=== PATIENT | female | born 1960 | race Caucasian/White ===

== ENCOUNTER 2017-03-04 19:59 | Emergency (ER) | payer MEDICAID ==
[~2017-03-04] VITALS: Ht 167.6 cm; Wt 72.7 kg
[2017-03-04 20:00] VITALS: BP 135/78
== END 2017-03-05 00:29 | disposition left against medical advice (07) ==
LOC: ER 20:51
DX: R51 Headache (principal); R10.2 Pelvic and perineal pain; Z53.21 Procedure and treatment not carried out due to patient leaving prior to being seen by health care provider

== ENCOUNTER 2017-03-05 01:20 | Emergency (ER) | payer MEDICAID ==
[~2017-03-05] VITALS: Ht 167.6 cm; Wt 72.7 kg
[2017-03-05 07:00] VITALS: BP 127/63
[2017-03-05] MEDS ORDERED: IBUPROFEN 800MG TABLET PO ONE (07:00)
[2017-03-05 07:43] LABS: BASOPHILS % 0.4 % (0.0-2.0); HEMATOCRIT. 36.3 % (36.0-48.0); HEMOGLOBIN. 12.5 g/dL (12.0-16.0); LYMPHOCYTES % 19.4 % (20.0-50.0); MEAN CORPUSCULAR HEMOGLOBIN 29.5 pg (28.0-32.0); MEAN CORPUSCULAR VOLUME 85.9 fL (81.0-99.0); MEAN PLATELET VOLUME 7.7 fl (7.4-10.4); NEUTROPHILS % 69.2 % (40.0-76.0); PLATELET 222 x1000/uL (130-400); RED BLOOD CELL COUNT 4.23 mill/uL (4.2-5.4); RED CELL DISTRIBUTION WIDTH 12.8 % (11.6-14.6)
[2017-03-05 09:02] LABS: CLARITY URINE CLOUDY (CLEAR); COLOR URINE DARK YELLOW (YELLOW); KETONES URINE TRACE (NEGATIVE); LEUKOCYTE ESTERASE URINE TRACE (NEGATIVE); NITRITE URINE NEGATIVE (NEGATIVE); OCCULT BLOOD URINE NEGATIVE (NEGATIVE); PH URINE 5.5 (4.5-8.0); PROTEIN URINE 1+ (NEGATIVE); SPECIFIC GRAVITY URINE 1.038 (1.005-1.030)
[2017-03-05] MEDS ORDERED: ACETAMINOPHEN 325MG TABLET PO ONE (09:45)
== END 2017-03-05 12:47 | disposition home or self-care (01) ==
LOC: ER 01:20
DX: B37.3 Candidiasis of vulva and vagina (principal); I10 Essential (primary) hypertension; F31.9 Bipolar disorder, unspecified; Z88.6 Allergy status to analgesic agent; Z98.890 Other specified postprocedural states
CPT/HCPCS: 36415; 76830; 76856; 81001; 85025; 99285; Z7610

== ENCOUNTER 2018-03-01 18:08 | Emergency (ER) | payer MEDICAID | END 2018-03-01 19:22 | disposition left against medical advice (07) | LOC: ER 18:08 | DX: Z53.21 Procedure and treatment not carried out due to patient leaving prior to being seen by health care provider (principal) ==

== ENCOUNTER 2019-07-09 00:09 | Emergency (ER) | payer MEDICAID ==
[~2019-07-09] VITALS: Ht 160 cm; Wt 70.0 kg
[2019-07-09] MEDS ORDERED: IBUPROFEN 800MG TABLET PO ONE (01:00)
[2019-07-09] MEDS ORDERED: ACETAMINOPHEN 325MG TABLET PO STA (04:40)
[2019-07-09 07:35] VITALS: BP 129/73
== END 2019-07-09 07:49 | disposition home or self-care (01) ==
LOC: ER 00:09
DX: M25.562 Pain in left knee (principal); M25.561 Pain in right knee; F20.9 Schizophrenia, unspecified; M19.90 Unspecified osteoarthritis, unspecified site; F31.9 Bipolar disorder, unspecified; Z59.0 Homelessness; Z88.6 Allergy status to analgesic agent
CPT/HCPCS: 99283

== ENCOUNTER 2024-09-12 23:28 | Emergency (ER) | payer MEDICAID ==
[~2024-09-12] VITALS: Ht 167.6 cm; Wt 82.0 kg
[2024-09-12 23:59] VITALS: O2SAT 95
[2024-09-13 00:20] VITALS: TEMP 36.5
[2024-09-13 01:06] LABS: BASOPHILS % 0.3 % (0.0-2.0); EOSINOPHILS % 0.3 % (0.0-5.0); HEMATOCRIT. 41.6 % (36.0-48.0); HEMOGLOBIN. 13.8 g/dL (12.0-16.0); MEAN CORPUSCULAR HEMOGLOBIN 26.7 pg (28.0-32.0); MEAN CORPUSCULAR HGB CONC 33.1 g/dL (31.0-37.0); MEAN CORPUSCULAR VOLUME 80.5 fL (81.0-99.0); MEAN PLATELET VOLUME 9.1 fl (7.4-10.4); MONOCYTES % 3.7 % (2.0-8.0); NEUTROPHILS % 84.7 % (40.0-76.0); PLATELET 195 x1000/uL (130-400); RED BLOOD CELL COUNT 5.17 mill/uL (4.2-5.4); RED CELL DISTRIBUTION WIDTH 16.8 % (11.6-14.6); WHITE BLOOD COUNT 11.1 x1000/uL (4.5-11.0)
[2024-09-13] MEDS: MECLIZINE 25MG TABLET PO ONE (01:09)
[2024-09-13] MEDS: LORAZEPAM 0.5MG TABLET PO ONE (01:09)
[2024-09-13] MEDS: ONDANSETRON HCL 4MG/2ML INJ IV ONE (01:09)
[2024-09-13] MEDS: ACETAMINOPHEN 325MG TABLET PO ONE (01:10)
[2024-09-13 01:13] LABS: CARBON DIOXIDE 25 mEq/L (21-32); CHLORIDE 106 mEq/L (98-107); POTASSIUM 3.7 mEq/L (3.5-5.1); SODIUM 138 mEq/L (136-145)
[2024-09-13 01:14] LABS: CALCIUM 8.9 mg/dL (8.7-10.4)
[2024-09-13 01:19] LABS: CREATININE 0.6 mg/dL (0.6-1.0); ETHANOL BLOOD < 10 mg/dL (<10); GLUCOSE 139 mg/dL (70-105); UREA NITROGEN BLOOD 14 mg/dL (9-23)
[2024-09-13 01:33] LABS: TROPONIN I HIGH SENSITIVITY < 4 ng/L (3.0-34)
[2024-09-13 01:54] LABS: PARTIAL THROMBOPLASTIN TIME 25.3 sec (23.4-31.0); PROTHROMBIN TIME 10.3 sec (9.6-11.0)
[2024-09-13 02:39] VITALS: BP 120/65; PULSE 61; RESP 19; O2SAT 96
[2024-09-13] MEDS: IOHEXOL-350 100 ML BOTTLE ONE (03:09)
[2024-09-13] MEDS ORDERED: MECL-299 MT (04:29)
[2024-09-13] MEDS ORDERED: ACET-2708 MT (04:29)
[2024-09-13] MEDS ORDERED: ONDA4TAB50 MT (04:29)
== END 2024-09-13 05:05 | disposition home or self-care (01) ==
LOC: ER 23:28
DX: R42 Dizziness and giddiness (principal); R51.9 Headache, unspecified; F20.9 Schizophrenia, unspecified; M19.90 Unspecified osteoarthritis, unspecified site; R07.9 Chest pain, unspecified; I10 Essential (primary) hypertension; F31.89 Other bipolar disorder; Z88.6 Allergy status to analgesic agent; Z79.899 Other long term (current) drug therapy
CPT/HCPCS: 36415; 71045; 93005; 99285; 80048; 80320; 83880; 85025; 85610; 85730; 84484; 70496; 70498; 70450; 96374; Q9967; J8597; J2405; G0480